=== PATIENT | female | born 1955 ===

== ENCOUNTER 2017-04-29 09:47 | Emergency (ER) | payer BC ==
--- NOTE | 2017-04-29 10:47 | ERNOTE ---
Lower Extremity HPI - Narrative Date of Service: 04/29/17 - General Lower Extremities Pain: leg: left Time Seen by Provider: 04/29/17 10:30 Source: patient Exam Limitations: no limitations - Immun/Allergies/Home Medications Immunizations: IMMUNIZATION HX History of Influenza Vaccine No Hx Pneumococcal Vaccination No Allergies/Adverse Reactions: Allergies Allergy/AdvReac Type Severity Reaction Status Date / Time No Known Allergies Allergy Verified 04/29/17 09:57 Home Medications: HOME MEDICATIONS NK [No Home Medication] 04/29/17 [Last Taken Unknown] - History of Present Illness Narrative: Pt. comes in with c/o L proximal lower leg pain after her dog ran into her leg a week ago. Pt. denies any SOB, CP, NVD, fever, recent illness, or injury. Pt. denies any calf pa8in or numbness/tingling. Pt. states that she went to a [employer] a week ago who suggested that she go to the ER but she felt it was not that bad and waited until today. Pt. states that the pain has been improved but not resolved with Ibuprofen Review of Systems - Review of Systems Constitutional: Present: no symptoms reported. Absent: recent illness, fever, chills, weakness, fatigue, malaise EYE: Present: no symptoms reported ENT: Present: no symptoms reported Respiratory: Present: no symptoms reported. Absent: shortness of breath, cough , wheezing Cardiology: Present: no symptoms reported. Absent: chest pain, palpitations, edema Gastrointestinal/Abdominal: Present: no symptoms reported Genitourinary: Present: no symptoms reported Musculoskeletal: Present: other - L prox lateral fibula pain. Absent: back pain , joint pain Skin: Present: no symptoms reported. Absent: rash, change in color Neurological: Present: no symptoms reported. Absent: headache, dizziness/light- headedness, numbness, tingling All Other Systems: All systems neg except as marked - Patient's Past Medical History Patient History - Medical: No pertinent hx Patient History - Cardiac/Respiratory: No pertinent hx Patient History - Cancer: No Hx of Cancer Patient History - Surgical Procedures: Hysterectomy Patient History - Other: None - Social History Living Situations: home Psych History: No pertinent hx Alcohol Use: none Drug Use: none - Immunizations Hx Pneumococcal Vaccination: No History of Influenza Vaccine: No Physical Exam - Physical Exam General Appearance: Present: wd/wn, alert, no apparent distress Head Exam: Present: normal inspection, no evidence of injury Eye Exam: Normal inspection: bilateral, PERRL: bilateral, EOMI: bilateral Respiratory: Present: no respiratory distress, normal breath sounds, no accessory muscle use, chest nontender, lungs clear Cardiovascular/Chest: Present: regular rate, rhythm, no murmur, normal peripheral pulses Extremity Exam: Present: bony tenderness - proximal lateral fibula where the LCL attaches Neurological Exam: Present: alert, oriented, normal mood/affect, no motor/ sensory deficits. Absent: motor weakness Skin Exam: Present: normal color, warm/dry. Absent: pallor, skin rash ED Progress - Vital Signs Patient's Vital Signs:: I have reviewed the patient's vital signs. Vital Signs: Vital Signs 04/29/17 09:51 Temperature 36.7 C Pulse Rate 73 Respiratory 12 Rate Blood Pressure 146/66 O2 Sat by Pulse 97 Oximetry - X-Ray X-Ray #1 X-Ray: tibula/fibula Interpretation: Reviewed by me X-ray Comments: no acute fractures equivocal lucency over ankle do not feel this is significant as it is not where pt. injury is - Progress/Reassessment Chief Complaint: Lower Extremity Pain/ Injury Departure Clinical Impression: Knee LCL sprain Qualifiers: Encounter type: initial encounter Laterality: left Qualified Code(s): S83.422A - Sprain of lateral collateral ligament of left knee, initial encounter - Departure Disposition: Home self-care Condition: Good Instructions: Lateral Collateral Knee Ligament Sprain With Phase II Rehab- [facility] Additional Instructions: Please use crutches at all times when walking and follow up with orthopedics as scheduled Referrals: Fang Catalan FNP [Primary Care Provider] -
[2017-04-29 11:51] VITALS: BP 149/70
== END 2017-04-29 11:50 | disposition home or self-care (01) ==
LOC: ER 09:47
DX: S83.422A Sprain of lateral collateral ligament of left knee, initial encounter (principal); X58.XXXA Exposure to other specified factors, initial encounter